=== PATIENT | male | born 1960 | race Caucasian/White ===

== ENCOUNTER 2016-09-23 16:07 | Observation (INO) | payer OTHER ==
[~2016-09-23] VITALS: Ht 175.3 cm; Wt 138.8 kg
[2016-09-23 16:09] VITALS: Ht 175.3 cm; Wt 138.8 kg
[2016-09-23] MEDS ORDERED: CEPHALEXIN MONOHYDRATE 250 MG CAP PO ONE (16:45)
[2016-09-23] MEDS ORDERED: XYLOCAINE 1%/SOD BICARB 20 ML VIAL INFIL ONE (16:45)
[2016-09-23] MEDS ORDERED: DIPHTHERIA/TETANUS/PERTUSSIS 0.5 ML SYR/VIAL IM. ONE (16:45)
--- NOTE | 2016-09-23 17:13 | DIAGNOSTIC IMAGING REPORT ---
RIGHT HAND MIN 3 VIEWS ROUTINE CLINICAL HISTORY: Right hand trauma. COMPARISON: None FINDINGS: There is a markedly comminuted, displaced fracture of the proximal phalanx of the right second finger. There is soft tissue irregularity with possible soft tissue gas. This may reflect an open fracture. Multiple bone fragments are noted. An 8 mm curvilinear radiodensity within the palmar soft tissues at the level the fracture suggests a foreign body. A 6 mm well-corticated ossicle along the lateral aspect of the wrist is chronic. No additional acute fractures are identified. IMPRESSION: 1. Markedly comminuted, displaced fracture of the proximal phalanx of the right second finger with suspected soft tissue gas. This may reflect an open fracture. 2. 8 mm curvilinear radiodensity within the palmar soft tissues at the level of the fracture which suggests a foreign body. Electronically signed by: Myles Amezquita M.D. 09/23/2016 5:12 PM Dictated Date/Time: 09/23/2016 5:09 PM
[2016-09-23] MEDS ORDERED: FENTANYL CITRATE INJ 50 MCG/1 ML 2 ML VIAL ONE ×2 (17:35→19:21)
[2016-09-23] MEDS ORDERED: MIDAZOLAM HCL 1 MG/ML 2ML VIAL ONE (17:35)
[2016-09-23] MEDS ORDERED: ATOR-24 PO (17:41)
[2016-09-23] MEDS ORDERED: ASPI81TA28 PO (17:41)
[2016-09-23] MEDS ORDERED: TPRSR/100 PO (17:41)
[2016-09-23] MEDS ORDERED: LEVO75TA5 PO (17:41)
[2016-09-23] MEDS ORDERED: LEVO50TA6 PO (17:41)
[2016-09-23] MEDS ORDERED: ERGO500037 PO (17:41)
[2016-09-23] MEDS ORDERED: LIDOCAINE HCL 2% 2 ML VIAL (20MG/ML) ONE (17:44)
[2016-09-23] MEDS ORDERED: PROPOFOL IV EMULSION 10 MG/ML 20 ML VIAL IV ONE (17:44)
[2016-09-23] MEDS ORDERED: ONDANSETRON INJ 2 MG/ML 2 ML VIAL ONE ×2 (17:44→18:11)
[2016-09-23 17:49] LABS: BASO % 0.4 %; BASO ABS # 0.05 K/uL (0-0.2); COMPLETE YES; EOS % 0.6 %; HEMATOCRIT 45.9 % (42-52); IG% 0.6 %; LYMPH % 16.4 %; LYMPH ABS # 2.16 K/uL (1.2-3.4); MEAN CELL VOLUME 85.6 fL (80-100); MEAN CORPUSCULAR HEMOGLOBIN 29.9 pg (25-34); MEAN CORPUSCULAR HGB CONC 34.9 g/dl (32-36); MEAN PLATELET VOLUME 9.1 fL (7.4-10.4); MONO % 7.4 %; NEUT % 74.6 %; PLATELET COUNT 261 K/uL (130-400); RED BLOOD COUNT 5.36 M/uL (4.7-6.1); WHITE BLOOD COUNT 13.18 K/uL (4.8-10.8)
[2016-09-23] MEDS ORDERED: BUPIVACAINE 0.5 % 5 MG/1 ML MPF 30ML VIAL ONE (17:58)
[2016-09-23] MEDS ORDERED: LIDOCAINE/EPINEPHRINE 1% 20 ML VIAL ONE (17:58)
[2016-09-23 18:06] LABS: BUN/CREATININE RATIO 16.3 (10-20); CREATININE 1.2 mg/dl (0.60-1.40); POTASSIUM 4.1 mmol/L (3.5-5.1)
[2016-09-23] MEDS ORDERED: SUCCINYLCHOLINE CHLORIDE 20 MG/ML 10 ML VIAL IV ONE (18:11)
[2016-09-23] MEDS ORDERED: ROCURONIUM BROMIDE 10 MG/ML 5 ML VIAL ONE (18:11)
[2016-09-23] MEDS ORDERED: PIPERACILLIN/TAZOBACTAM 4.5 GM/100ML D5W IV STA (18:13)
[2016-09-23] MEDS ORDERED: PIPERACILL/TAZOBAC CONSULT ACTIVE PRN (18:30)
--- NOTE | 2016-09-23 18:34 | HISTORY & PHYSICAL EXAMINATION ---
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 He was working at a place in [place] at around 2:00 p.m. when a forklift collapsed on his right hand crushing his index finger. He has no prior history of hand injuries. He denies any numbness or tingling. He had something to drink around 2:00 or 3:00 and has not eaten since noon. The injury occurred at work. ALLERGIES: HE HAS ALLERGIES TO BEES, ERYTHROMYCIN CAUSES GI UPSET. SOCIAL HISTORY: He smokes 1 pack of cigarettes per day, rarely drinks. He is with a daughter. MEDICATIONS: Metoprolol, levothyroxine, vitamin D, Lipitor and aspirin. REVIEW OF SYSTEMS: He does not have a history of bleeding or blood clots. He does have a history of skin cancer. He has no lung, liver or kidney disease. There is no history of infections. PAST SURGICAL HISTORY: Pacemaker, umbilical hernia, foreign body removed from left hand. PAST MEDICAL HISTORY: Includes skin cancer, hypothyroid. He is not diabetic. He has had a pacemaker inserted due to missed heartbeats. He has sleep apnea and uses a CPAP machine. He has high blood pressure.
--- NOTE | 2016-09-23 18:34 | EMERGENCY ROOM VISIT NOTE ---
History First contact with patient: 16:17 Chief Complaint: LACERATION/CUT (NON-SUTURE) Stated Complaint: SMASHED RT FINGER/HAND,WC History of Present Illness The patient is a 55 year old male who presents to the Emergency Room with complaints of an injury to his right hand when a forklift fell onto his hand at work. The patient was attempting to repair the hydraulic cylinder when this happened. He reports that several coworkers had to lift the forklift assembly off of his hand. The patient denies any significant bleeding, and currently denies any pain. The patient believes that his tetanus immunization is up-to- date within 10 years, but is not certain. The patient is [id number]. Review of Systems 10 system review was performed and was negative except for pertinent positives and negatives as indicated in history of present illness Past Medical/Surgical History Medical Problems: (1) Hypertension (2) Myocardial infarction Surgical Problems: (1) History of eye surgery Family History Unremarkable Social History Smoking Status: Current Every Day Smoker Alcohol Use: occasionally Marital Status: Occupation Status: employed Current/Historical Medications Scheduled Aspirin (Aspirin Ec), 81 MG PO DAILY Atorvastatin (Lipitor), 40 MG PO DAILY Ergocalciferol (Vitamin D 49754 Unit), 50,000 UNIT PO WK Levothyroxine Sodium (Levothyroxine Sodium), 75 MCG PO Q2D Levothyroxine Sodium (Levothyroxine Sodium), 50 MCG PO Q2D Metoprolol Succinate (Metoprolol Succinate ER), 100 MG PO HS Allergies Coded Allergies: Bee Venom (Verified Allergy, Intermediate, Swelling, 09/23/16) Erythromycin (Verified Adverse Reaction, Unknown, GI upset, 09/23/16) Physical Exam Vital Signs Date Time Temp Pulse Resp B/P Pulse Ox O2 Delivery O2 Flow Rate FiO2 09/23/16 21:10 67 13 90 09/23/16 21:10 67 13 09/23/16 18:15 60 18 156/99 93 Room Air 09/23/16 16:09 37.5 69 18 178/97 96 Room Air Physical Exam CONSTITUTIONAL: Healthy and well nourished. Alert and oriented X 3 with positive affect. Patient does not appear in any acute distress. HEENT: Normocephalic, atraumatic. Pupils equal, round and reactive. NECK: Full active range of motion without discomfort. RESPIRATORY: Clear to auscultation bilaterally with no wheezing, crackles, rhonchi or stridor. CARDIOVASCULAR: Regular rate and rhythm with no murmurs, rubs or gallops. MUSCULOSKELETAL: Examination of the right hand shows a 2 cm flap laceration/ avulsion over the dorsal base of the index finger. The extensor tendon is exposed. No active bleeding is noted. Capillary refill is less than 2 seconds. INTEGUMENTARY: No rash or other significant dermatologic conditions noted. NEUROLOGIC: Right hand and fingers are sensory intact. Medical Decision & Procedures ER Provider Diagnostic Interpretation: My interpretation of right hand x-ray shows a comminuted chevron-type fracture of the proximal phalanx. No intra-articular extension noted. A curvilinear radiopaque metallic foreign body is seen at the volar aspect of the proximal phalanx. Radiologist report is as follows: RIGHT HAND MIN 3 VIEWS ROUTINE CLINICAL HISTORY: Right hand trauma. COMPARISON: None FINDINGS: There is a markedly comminuted, displaced fracture of the proximal phalanx of the right second finger. There is soft tissue irregularity with possible soft tissue gas. This may reflect an open fracture. Multiple bone fragments are noted. An 8 mm curvilinear radiodensity within the palmar soft tissues at the level the fracture suggests a foreign body. A 6 mm well-corticated ossicle along the lateral aspect of the wrist is chronic. No additional acute fractures are identified. IMPRESSION: 1. Markedly comminuted, displaced fracture of the proximal phalanx of the right second finger with suspected soft tissue gas. This may reflect an open fracture. 2. 8 mm curvilinear radiodensity within the palmar soft tissues at the level of the fracture which suggests a foreign body. Laboratory Results Test 09/23/16 17:41 Immature Granulocyte % (Auto) 0.6 % White Blood Count 13.18 K/uL (4.8-10.8) Red Blood Count 5.36 M/uL (4.7-6.1) Hemoglobin 16.0 g/dL (14.0-18.0) Hematocrit 45.9 % (42-52) Mean Corpuscular Volume 85.6 fL (80-100) Mean Corpuscular Hemoglobin 29.9 pg (25-34) Mean Corpuscular Hemoglobin Concent 34.9 g/dl (32-36) Platelet Count 261 K/uL (130-400) Mean Platelet Volume 9.1 fL (7.4-10.4) Neutrophils (%) (Auto) 74.6 % Lymphocytes (%) (Auto) 16.4 % Monocytes (%) (Auto) 7.4 % Eosinophils (%) (Auto) 0.6 % Basophils (%) (Auto) 0.4 % Neutrophils # (Auto) 9.83 K/uL (1.4-6.5) Lymphocytes # (Auto) 2.16 K/uL (1.2-3.4) Monocytes # (Auto) 0.98 K/uL (0.11-0.59) Eosinophils # (Auto) 0.08 K/uL (0-0.5) Basophils # (Auto) 0.05 K/uL (0-0.2) Immature Granulocyte # (Auto) 0.08 K/uL (0.00-0.02) The above labs were reviewed. Medications Administered Medications (Trade) Dose Ordered Sig/Dalton Route Start Time Stop Time Status Last Admin Dose Admin Cephalexin Monohydrate (Keflex Cap) 500 mg NOW ONCE PO 09/23/16 16:45 09/23/16 16:46 DC 09/23/16 16:42 500 MG Diphtheria/ Pertussis/Tetanus Vacc (Adacel Inj) 0.5 ml ONCE ONCE IM. 09/23/16 16:45 09/23/16 16:46 DC 09/23/16 16:46 0.5 ML Lidocaine HCl (Buffered Lidocaine 1% Inj) 20 ml ONE ONCE INFIL 09/23/16 16:45 09/23/16 16:46 DC 09/23/16 16:42 20 ML Piperacillin Sod/ Tazobactam Sod (Zosyn Iv) 4.5 gm NOW STAT IV 09/23/16 18:13 09/23/16 18:14 DC 09/23/16 18:30 4.5 GM Povidone Iodine (Betadine Ophthalmic Prep Solution) 30 ml STK-MED ONCE .ROUTE 09/23/16 19:19 09/23/16 19:22 DC 09/23/16 19:19 30 ML Lidocaine HCl (Xylocaine 1% Inj (Local)) 20 ml STK-MED ONCE .ROUTE 09/23/16 19:34 09/23/16 19:36 DC 09/23/16 19:34 20 ML Bupivacaine HCl (Bupivacaine 0.5% - Pf) 9 ml ONE ONCE INJ 09/23/16 21:12 09/23/16 21:13 DC 09/23/16 21:12 9 ML ED Course Patient history and physical exam were performed. Nurse's notes were reviewed. The patient refused any analgesics on initial exam. The patient also refused any IV antibiotics at this point, and was therefore administered Keflex 500 mg orally. He was also administered Adacel IM. X-rays of the right hand shows a comminuted fracture of the proximal phalanx of the index finger, along with a curvilinear metallic foreign body in the palmar tissue at the same level as the fracture. At this point, x-rays were reviewed with Dr. De La Paz, orthopedic surgeon personal coach. He requested IV access for IV antibiotics. He will speak with the pharmacist regarding antibiotic choice. Labs were drawn and reviewed. Please see Dr. De La Paz's reports for further surgical management and disposition. Impression Primary Impression: Open displaced fracture of phalanx of right index finger Additional Impression: Work related injury Departure Information Referrals JOSÉ MANUEL VELAZQUEZ (PCP) Patient Instructions My [facility] Problem Qualifiers Primary Impression: Open displaced fracture of phalanx of right index finger Encounter type: initial encounter Phalanx: proximal Qualified Codes: S62.610B - Displaced fracture of proximal phalanx of right index finger, initial encounter for open fracture
--- NOTE | 2016-09-23 18:44 | HISTORY & PHYSICAL EXAMINATION ---
DATE OF ADMISSION: 09/23/2016 He has a history of sleep apnea and uses a CPAP machine, hypertension, DC 5 years ago with stents placed, pacemaker, no diabetes, hypothyroid and skin cancer. Examination of the right hand shows it is covered with blood and grease. He has no tenderness of the thumb, long, ring or little finger. The hand is not tender or swollen. There is an open wound beginning at the midline and proceeding circumferential in an ulnar direction volarly to near the midline. There is maceration of the wound. It is about a centimeter wide and may involve some soft tissue loss or significant damage. Capillary refill was less than 2 seconds. Radial pulses 2+. He can flex the DIP joint and hold the finger extended without a lag. He can flex the PIP joint and extend the PIP joint with good strength against resistance. On the volar and radial side of the distal portion of the finger there is decreased sensation. He has normal sensation dorsally and ulnarly. The wound is on the ulnar side of the digit. The finger does not appear to be notably deformed, shortened or crooked. The MP joint is not tender. IMPRESSION: 1. Grade 2 open fracture of the right index finger with numbness. 2. History of cardiac disease. Radiographs of the finger show a comminuted fracture of the proximal phalanx. There is a metallic foreign body located centrally and volarly perhaps with some other radiopaque material or bone. The fracture does not involve the joint, but there are at least 3 large fragments. PLAN: Findings are discussed with patient and family. I have recommended tetanus which is given, IV antibiotics. Ancef has been given and will follow that with Katerin after consultation with clinical pharmacist. A Betadine-soaked dressing is applied. He is to elevate and remain n.p.o. I have recommended operative intervention. He agrees to proceed. Plan will be for irrigation, debridement, and evaluation of the soft tissue, possible closure. He is aware that there is soft tissue damage which may leave an open wound and necessitate further treatment. I would remove the foreign body and also do an open reduction with percutaneous pinning if possible. There could be tendon damage. Looks like the tendons are intact. There is possibly some neurological injury. We discussed risks of infection, bleeding, pain, scarring, nerve and blood vessel damage, blood clots, embolism, heart attack, stroke, and , stiffness, pin failure, the need for further surgery, wound problems. He has no issues with bleeding, blood clots or infections. Will plan on hopefully a regional anesthetic with sedation. His white count is 13, hemoglobin is 16, hematocrit 46, platelet count is 261. His PRP is noted. BUN is slightly high at 20.
[2016-09-23] MEDS ORDERED: POVIDONE-IODINE OP SOLN 30 ML BTL ONE (19:19)
[2016-09-23] MEDS ORDERED: LIDOCAINE HCL 1% 20 ML VIAL ONE (19:34)
[2016-09-23] MEDS ORDERED: NEOSTIGMINE METHYLSULFATE 5 MG/5 ML SYR ONE (19:35)
[2016-09-23] MEDS ORDERED: GLYCOPYRROLATE INJ 0.2 MG/ML VIAL ONE (19:35)
--- NOTE | 2016-09-23 20:58 | DIAGNOSTIC IMAGING REPORT ---
INTRAOPERATIVE FLUOROSCOPIC IMAGES OF THE RIGHT SECOND FINGER CLINICAL HISTORY: Incision and drainage. K wire fixation. COMPARISON STUDY: Right hand radiographs performed September 23, 2016. FLUOROSCOPY TIME: 1 minute and 47 seconds. FINDINGS: 2 intraoperative fluoroscopic images from K wire fixation of the fracture of the proximal phalanx of the right second finger were obtained. Fracture alignment is markedly improved and now near anatomic. No unexpected radiopaque foreign bodies are identified. IMPRESSION: Expected findings following K wire fixation of the fracture of the proximal phalanx of the right second finger. Electronically signed by: Myles Amezquita M.D. 09/23/2016 8:57 PM Dictated Date/Time: 09/23/2016 8:55 PM
[2016-09-23] MEDS ORDERED: BUPIVACAINE 0.5% - PF INJ ONE (21:12)
[2016-09-23] MEDS ORDERED: MoRPHine SULFATE 2 MG/ML CARP IV PRN (21:15)
[2016-09-23] MEDS ORDERED: METOCLOPRAMIDE HCL INJ 5 MG/ML 2 ML VIAL IV PRN (21:15)
[2016-09-23] MEDS ORDERED: ALUMINUM/MAGNESIUM/SIMETH (MAALOX MAX) 30 ML UDC PO PRN (21:15)
[2016-09-23] MEDS ORDERED: ONDANSETRON INJ 2 MG/ML 2 ML VIAL IV PRN ×2 (21:15→21:30)
--- NOTE | 2016-09-23 21:20 | [facility] Operative Report ---
Operative Report Operative Date Sep 23, 2016. Pre-Operative Diagnosis Grade 2 open fracture of the right index finger with numbness Post-Operative Diagnosis same Procedure(s) Performed Right index finger, irrigation and debridement, percutaneous pinning, soft tissue closure Surgeon Dr. De La Paz Academic Affairs Coordinator Surgeon(s) Shun Camarena PA-C Estimated Blood Loss Minimal - per Dr. De La Paz Findings same Specimens None Drains none Anesthesia general Disposition Recovery Room / PACU Indications sustained injury to right index finger, xrays and exam obtained, surgery recommended, consents signed Description of Procedure taken to the OR, prepped and draped, I was present the entire case, please see Dr. De La Paz's op note for further detail. I attest to the content of the Intraoperative Record and any orders documented therein. Any exceptions are noted below.
[2016-09-23] MEDS ORDERED: EpHEDrine SULFATE INJ 50 MG/ML AMP IV PRN (21:30)
[2016-09-23] MEDS ORDERED: IV FLUIDS COMPLETED PRN (21:30)
[2016-09-23] MEDS ORDERED: ATROPINE SULFATE 0.1 MG/ML 5ML SYR IV PRN (21:30)
[2016-09-23] MEDS ORDERED: HYDROmorphone INJ 1 MG/ML SYR IV PRN (21:30)
[2016-09-23] MEDS ORDERED: FENTANYL CITRATE INJ 50 MCG/1 ML 2 ML VIAL IV PRN (21:30)
[2016-09-23] MEDS ORDERED: PIPERACILL/TAZOBAC IV 4.5 GM in DEXTROSE 5% 100ML 100 ML IV SCH (21:30)
--- NOTE | 2016-09-23 21:33 | [facility] Post Operative Brief Note ---
Immediate Operative Summary Operative Date Sep 23, 2016. Pre-Operative Diagnosis Grade 2 open fracture of the right index finger with numbness Post-Operative Diagnosis Grade 2 open fracture of the right index finger with numbness Procedure(s) Performed Exploration and Percutaneous Pinning Proximal Right index finger, I & D right index finger Surgeon Dr. De La Paz Tafe Lecturer Surgeon(s) Shun Camarena PA-C Estimated Blood Loss Minimal - per Dr. De La Paz Findings soft tissue defect, grade 2 open prox phalanx fracture Specimens None Drains 0 Anesthesia general Complication(s) None Disposition Recovery Room / PACU
--- NOTE | 2016-09-23 21:52 | Anesthesiology Progress Note ---
Anesthesia Post Op Note Date & Time Sep 23, 2016 at 21:52 Vital Signs Pain Intensity: 0 Vital Signs Past 12 Hours Date Time Temp Pulse Resp B/P Pulse Ox O2 Delivery O2 Flow Rate FiO2 09/23/16 18:15 60 18 156/99 93 Room Air 09/23/16 16:09 37.5 69 18 178/97 96 Room Air Notes Mental Status: alert / awake / arousable, participated in evaluation Pt Amnestic to Procedure: Yes Nausea / Vomiting: adequately controlled Pain: adequately controlled Airway Patency, RR, SpO2: stable & adequate BP & HR: stable & adequate Hydration State: stable & adequate Anesthetic Complications: no major complications apparent
[2016-09-23 22:50] VITALS: BP 164/97; PULSE 61; TEMP 36.4; O2SAT 93; O2SAT 94
[2016-09-23 22:52] VITALS: BP 143/84; PULSE 60; TEMP 37; O2SAT 93
[2016-09-23 23:20] VITALS: BP 165/102; PULSE 71; TEMP 36.8; O2SAT 94
[2016-09-23] MEDS: D5W AND 1/2NSS + 20MEQ KCL 1,000 ML IV SCH (23:51)
[2016-09-23] MEDS: PIPERACILL/TAZOBAC IV 3.375 GM in DEXTROSE 5% 100ML 100 ML IV SCH (23:55)
[2016-09-24 00:20] VITALS: BP 145/82; PULSE 60; TEMP 36.3; O2SAT 95
[2016-09-24] MEDS ORDERED: IV FLUIDS COMPLETED PRN (01:00)
[2016-09-24] MEDS: OXYCODONE/ACETAMINOPHEN 5-325 TAB PO PRN ×2 (01:50→09:16)
[2016-09-24 03:40] VITALS: BP 146/87; PULSE 59; TEMP 36.4; O2SAT 95
[2016-09-24] MEDS ORDERED: LEVOTHYROXINE 50 MCG TAB PO SCH (06:00)
[2016-09-24 06:57] LABS: MEAN CELL VOLUME 85.5 fL (80-100); MEAN CORPUSCULAR HEMOGLOBIN 29.2 pg (25-34); MEAN CORPUSCULAR HGB CONC 34.2 g/dl (32-36); MEAN PLATELET VOLUME 9.1 fL (7.4-10.4); PLATELET COUNT 229 K/uL (130-400); RED BLOOD COUNT 5.03 M/uL (4.7-6.1); WHITE BLOOD COUNT 12.14 K/uL (4.8-10.8)
[2016-09-24] MEDS: PIPERACILL/TAZOBAC IV 3.375 GM in DEXTROSE 5% 100ML 100 ML IV SCH ×3 (07:22→23:44)
[2016-09-24 07:27] LABS: BUN/CREATININE RATIO 17.1 (10-20); CALCIUM 8.6 mg/dl (8.5-10.1); CREATININE 1.1 mg/dl (0.60-1.40); POTASSIUM 4.3 mmol/L (3.5-5.1)
[2016-09-24 07:30] VITALS: BP 134/80; PULSE 60; TEMP 36.8; O2SAT 93
--- NOTE | 2016-09-24 07:42 | OPERATIVE REPORT ---
DATE OF OPERATION: 09/23/2016 PREOPERATIVE DIAGNOSIS: Grade 2 open fracture of the right index finger. POSTOPERATIVE DIAGNOSIS: Same. PROCEDURE: Irrigation, debridement, closed reduction, percutaneous pinning, wound exploration and closure. SURGEON: Tawanda De La Paz MD CORE BLOWER OPERATOR: Shun Camarena PA-C. No resident or fellow available. ANESTHESIA: General. 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 Earlier today, he was seen in the emergency room and diagnosed with an open fracture. He was given antibiotics and tetanus. He was taken urgently to the operating room for irrigation, debridement and other treatments as indicated. PROCEDURE IN DETAIL: Informed consent was obtained. The patient was identified as Jose Atkinson. He identified the operative site as the right hand index finger. I marked with my initials. A preop surgical time out was performed. A preop dose of IV antibiotics was given. He was taken to the operating room, positioned supine on the operating room table with the right arm on a hand table. A tourniquet was applied to the right upper arm. A preop dose of Zosyn was given based upon consultation with clinical pharmacist. The right hand was double scrubbed with a Betadine scrub brush in order to remove caked on blood, grease and hydraulic fluid. The right arm was then prepped with Betadine in usual sterile fashion. The limb was exsanguinated with the Esmarch from the hand up leaving the fingers free and tourniquet inflated to 250 mmHg. A preop surgical time out was performed. A preop dose of IV antibiotics was given. Fluoroscopic guidance was utilized throughout the procedure. DVT prophylaxis was not indicated. At the conclusion of the operation, a digital block with 1% lidocaine and 0.5% Marcaine both without epinephrine was given. The wound was irrigated with a liter of saline bulb syringe and a liter of Betadine lavage. The hematoma was evacuated. The skin and fracture site were thoroughly irrigated. There was an avulsion laceration with a 5 mm pedicle flap distally. The skin was moderately damaged. This was full thickness loss down to the bone. The extensor tendon was intact. The flexor tendons were intact. The flap of skin was pedicled distally. A closed reduction was performed with a little bit of gentle longitudinal traction and adjustment of flexion and extension and percutaneous pin was inserted from the radial base distally, obliquely across the fracture. This was adjusted x2. Another pin was then applied from the distal portion, radial side of the proximal phalanx proximally. These were bicortical pins and provided excellent stability and anatomic alignment in both the AP and lateral planes. The fracture was highly comminuted in its mid portion. The wound itself was 2 cm long, 3 cm deep and basically went from the dorsal midline to the volar midline at the level of the webspace and just distally on the ulnar side. Irrigation again was performed. I oriented the flap. I had to essentially amputate the small remaining pedicle. The skin was 90-95% free anyhow. I then oriented it, reapproximated it and sutured into place with good coverage everywhere except at the webspace where there was some soft tissue loss. Without this, the wound is open to the extensor tendon directly to the fracture which would be visible and to the flexor tendon. The tourniquet was let down after the irrigation, debridement was performed and meticulous hemostasis was obtained. There was good capillary refill in the finger. There was good rotation with passive digital flexion. The nail beds were parallel in extension and in mid flexion. The pins were cut outside the skin. Jurgan balls were applied. Xeroform fluffs between the fingers, a bulky soft sterile dressing followed by a volar splint. The patient was then awakened from anesthesia without difficulty and taken to recovery room in stable condition. There were no specimens or complications. Counts were correct at the end of the case. Blood loss was minimal. At the conclusion of the operation, I spoke to patient's family and informed them of my findings. K-wires inserted were 0.035 inches in diameter and provided good secure fixation. Dog Behaviorist images were obtained. I discussed with the family the issues with soft tissue coverage. There is a significant likelihood that this free soft tissue flap will not be viable and advanced soft tissue coverage may be necessary, which might involve the other specialties such as hand surgery or plastic surgery. He will be admitted to the hospital, the hand will be elevated and he will be placed on intravenous antibiotics. while prepping the metal fragment seen on the preop xray fell out of the wound. I attest to the content of the Intraoperative Record and any orders documented therein. Any exceptions are noted below. DAVIAND
[2016-09-24] MEDS: D5W AND 1/2NSS + 20MEQ KCL 1,000 ML IV SCH ×2 (09:17→18:31)
[2016-09-24] MEDS: ASPIRIN 81 MG ECTAB PO SCH (09:17)
[2016-09-24] MEDS: ATORVASTATIN 40 MG TAB PO SCH (09:17)
[2016-09-24] MEDS: MULTIVITAMIN TAB PO SCH (09:17)
[2016-09-24] MEDS: DOCUSATE SODIUM 100 MG CAP PO SCH ×2 (09:17→21:09)
[2016-09-24] MEDS: PANTOprazole SOD 40 MG TAB PO SCH (09:17)
--- NOTE | 2016-09-24 13:20 | Progress Note ---
Orthopedic SOAP Note Subjective Date of Service: Sep 24, 2016. Post OP Day: 1 Reports: feeling well, pain controlled w PO medications, Denies: SOB, calf pain , chest pain, complaints, light headedness, nausea / vomiting, using CUTTING DEPARTMENT SUPERVISOR Additional Notes: reports some numbness in the right index finger Problem List Medical Problems: (1) Open displaced fracture of phalanx of right index finger Status: Acute (2) Work related injury Status: Acute Objective splint C/D/I, capillary refill less than 2 sec., dressing C/D/I, A&O x3 patient has sensation with light touch but does report decreased feeling overall Date Time Temp Pulse Resp B/P Pulse Ox O2 Delivery O2 Flow Rate FiO2 09/24/16 08:01 Room Air 09/24/16 07:30 36.8 60 18 134/80 93 Room Air 09/24/16 03:40 36.4 59 20 146/87 95 Nasal Cannula 2.0 09/24/16 00:20 36.3 60 20 145/82 95 Nasal Cannula 3.0 09/23/16 23:45 Nasal Cannula 3.0 09/23/16 23:20 36.8 71 18 165/102 94 Nasal Cannula 3.0 09/23/16 22:52 37.0 60 17 143/84 93 Room Air 2.0 CPAP 09/23/16 22:50 93 Nasal Cannula 2.0 CPAP 09/23/16 22:50 36.4 61 20 164/97 94 Nasal Cannula 4.0 09/23/16 22:44 93 Nasal Cannula 3.0 09/23/16 22:01 65 22 94 09/23/16 22:01 65 22 09/23/16 21:59 141/76 09/23/16 21:56 65 18 90 09/23/16 21:56 66 18 09/23/16 21:54 145/76 09/23/16 21:51 36.4 62 19 145/76 92 Nasal Cannula 3 09/23/16 21:51 67 13 09/23/16 21:51 66 13 91 09/23/16 21:49 138/75 09/23/16 21:46 62 9 09/23/16 21:46 62 9 89 09/23/16 21:44 154/84 09/23/16 21:41 61 13 92 09/23/16 21:41 61 13 09/23/16 21:39 143/91 09/23/16 21:36 66 19 09/23/16 21:36 66 19 87 09/23/16 21:35 71 16 09/23/16 21:35 70 16 88 09/23/16 21:34 139/79 09/23/16 21:30 67 24 94 09/23/16 21:30 67 24 09/23/16 21:29 141/82 09/23/16 21:26 132/79 09/23/16 21:26 36.2 64 12 131/91 91 Mask 10 09/23/16 21:25 64 7 95 09/23/16 21:25 64 7 09/23/16 21:20 65 13 09/23/16 21:20 66 13 94 09/23/16 21:15 67 13 92 09/23/16 21:15 67 13 09/23/16 21:14 128/72 09/23/16 21:10 67 13 90 09/23/16 21:10 67 13 09/23/16 18:15 60 18 156/99 93 Room Air 09/23/16 16:09 37.5 69 18 178/97 96 Room Air Laboratory Results 24 Hours: Test 09/23/16 17:41 09/24/16 06:35 White Blood Count 13.18 K/uL Red Blood Count 5.36 M/uL Hemoglobin 16.0 g/dL 14.7 g/dL Hematocrit 45.9 % 43.0 % Mean Corpuscular Volume 85.6 fL Mean Corpuscular Hemoglobin 29.9 pg Mean Corpuscular Hemoglobin Concent 34.9 g/dl Platelet Count 261 K/uL Mean Platelet Volume 9.1 fL Neutrophils (%) (Auto) 74.6 % Lymphocytes (%) (Auto) 16.4 % Monocytes (%) (Auto) 7.4 % Eosinophils (%) (Auto) 0.6 % Basophils (%) (Auto) 0.4 % Neutrophils # (Auto) 9.83 K/uL Lymphocytes # (Auto) 2.16 K/uL Monocytes # (Auto) 0.98 K/uL Eosinophils # (Auto) 0.08 K/uL Basophils # (Auto) 0.05 K/uL Assessment post op day 1 s/p right index finger I&D, percutaneous pinning, wound closure Plan continue post op care sling for comfort ice/elevation pain control with prescribed medications CPAP activity as tolerated, no using right hand resume diet continue ABX will discuss findings further with Dr. De La Paz
[2016-09-24 15:46] VITALS: BP 157/95; PULSE 60; TEMP 36.6; O2SAT 98
[2016-09-24] MEDS ORDERED: PANTOprazole SOD 40 MG TAB PO STA (18:38)
--- NOTE | 2016-09-24 19:22 | PROGRESS NOTE ---
DATE: 09/24/2016 SUBJECTIVE: Pain is reasonably well controlled and reviewed pain medication with him. He has indigestion, I will order Protonix. Labs noted. White count is down to 12. He is on Unasyn. He can wiggle the tip of his fingers, the nail plates look parallel, capillary refill is less than 2 seconds. Fingers are warm. He has some decreased sensation on the palmar side, radial side is okay, ulnar side has decreased sensation, a little bit same on the dorsal. Dressing is clean and dry. He is elevating. He has a grade 2 open fracture proximal phalanx, right index finger status post percutaneous pinning. There is a 2 x 3 cm soft tissue defect, ulnarly covered with an avulsed piece of soft tissue. PLAN: Continue to elevate, ice, pain medication and antibiotics. I have made contact with hand surgery/plastics at [place] to discuss further plans for treatment and possible soft tissue coverage. Will discuss with the patient when plan is become available. ALEJANDRO
[2016-09-24] MEDS ORDERED: METOPROLOL SUCC 50MG EXT REL TAB PO SCH (21:00)
[2016-09-24 21:09] VITALS: BP 144/86; PULSE 88
[2016-09-24 23:21] VITALS: BP 143/89; PULSE 60; TEMP 36.4; O2SAT 97
[2016-09-25 03:25] VITALS: BP 127/89; PULSE 60; TEMP 36.8; O2SAT 97
[2016-09-25] MEDS: D5W AND 1/2NSS + 20MEQ KCL 1,000 ML IV SCH (05:26)
[2016-09-25] MEDS: OXYCODONE/ACETAMINOPHEN 5-325 TAB PO PRN (05:29)
[2016-09-25] MEDS ORDERED: LEVOTHYROXINE 75 MCG TAB PO SCH (06:00)
[2016-09-25 07:09] VITALS: BP 141/89; PULSE 87; TEMP 36.4; O2SAT 92
[2016-09-25] MEDS: PIPERACILL/TAZOBAC IV 3.375 GM in DEXTROSE 5% 100ML 100 ML IV SCH (07:44)
[2016-09-25 08:39] LABS: HEMATOCRIT 41.5 % (42-52); MEAN CELL VOLUME 86.5 fL (80-100); MEAN CORPUSCULAR HEMOGLOBIN 29.2 pg (25-34); MEAN CORPUSCULAR HGB CONC 33.7 g/dl (32-36); MEAN PLATELET VOLUME 9.2 fL (7.4-10.4); PLATELET COUNT 225 K/uL (130-400); WHITE BLOOD COUNT 9.44 K/uL (4.8-10.8)
[2016-09-25] MEDS: PANTOprazole SOD 40 MG TAB PO SCH (08:51)
[2016-09-25] MEDS: ASPIRIN 81 MG ECTAB PO SCH (08:51)
[2016-09-25] MEDS: DOCUSATE SODIUM 100 MG CAP PO SCH (08:51)
[2016-09-25] MEDS: ATORVASTATIN 40 MG TAB PO SCH (08:51)
[2016-09-25] MEDS: MULTIVITAMIN TAB PO SCH (08:51)
[2016-09-25 09:13] LABS: BUN/CREATININE RATIO 17.5 (10-20); CALCIUM 8.6 mg/dl (8.5-10.1); CREATININE 1.1 mg/dl (0.60-1.40); POTASSIUM 4.2 mmol/L (3.5-5.1)
[2016-09-25 11:38] VITALS: BP 142/84; PULSE 87; TEMP 36.9; O2SAT 92
--- NOTE | 2016-09-25 11:46 | PROGRESS NOTE ---
DATE: 09/25/2016 No problems reported. He is afebrile. Vital signs are stable. Labs are noted. Hematocrit is 41. PRP noted. Dressing is changed. He has decreased sensation on the ulnar palmar aspect of the finger, otherwise normal capillary refill less than 2 seconds finger attitude/position looks appropriate to other fingers. Nailbeds are parallel. Looks equal to the opposite side. Pins are in place. Pin care cleaned with sterile saline. Blood cleaned from hand with sterile saline. The skin at the ulnar base of the digit is intact, but macerated. There is mild swelling, no erythema. Minimal to no drainage. A new dressing is applied. Bulky soft sterile hand dressing, fluffed between the fingers. Nonadherent dressing. Pads around the pins. A volar forearm splint. IMPRESSION: Grade 2 open fracture of the right hand, proximal phalanx, status post incision and drainage, percutaneous pinning, soft tissue compromise. PLAN: Findings discussed with patient. Recommend that he continue to elevated and ice. He can be discharged home. He has received a postop course of IV antibiotics. He does not require any DVT prophylaxis. Pain medication, icing, anti-inflammatory, if able. He will follow up with me next week, Friday or Friday in my office. He will continue the splint. I spoke with Dr. Edwardo Chao at [facility], who has agreed to see the patient this Friday in consultation regarding the soft tissue compromise and the need for a graft or a flap to provide coverage. I have given Dr. Chao the patient's contact information and they will arrange an appointment. If there are any problems with pain, fever, swelling, numbness, tingling or other problems or questions, please return to the ER or call my office.
[2016-09-25] MEDS ORDERED: OXYC-57 PO (11:56)
--- NOTE | 2016-09-25 11:59 | Discharge Instructions ---
Discharge Instructions Admission Reason for Admission: Open Displaced Fracture Of Phalanx R Index Finger Discharge Discharge Diagnosis / Problem: same as above Discharge Goals Goal(s): Decrease discomfort, Improve function, Increase independence Activity Recommendations Activity Limitations: as noted below Lifting Limitations: until after follow-up appointment Exercise/Sports Limitations: until after follow-up appointment May Resume Sexual Activity: when tolerated Shower/Bathe: tomorrow, keep incision dry Driving or Machine Use: resume 1 day after discharge Weightbearing Status: Right non-weightbearing (No lifting with Right hand) . Instructions / Follow-Up Instructions / Follow-Up DIET: * Resume previous diet. MEDICATIONS: * Please take your prescriptions as instructed at your pre-op appointment and/ or see medication discharge instructions listed above. * If concerns develop, call your physician's office at . SPECIAL CARE INSTRUCTIONS: * Ice/Elevate as instructed. * Keep dressing clean, dry, intact. * Your surgical extremity may be discolored due to prepping agents used on the skin. A bluish-green tint is a normal variant and should not cause alarm. Call your doctor at [phone] if: * Temperature above 101 degrees * Pain not relieved by pain medicine ordered * There is increased drainage or redness from any incision * You have any unanswered questions, problems or concerns. FOLLOW UP VISIT: * If not already scheduled, please call the office at to schedule a follow-up appointment. Dr. De La Paz wants to see you in the clinic either Next Friday or Friday. Call office today to set up the appointment. Current Hospital Diet Patient's current hospital diet: Regular Diet Discharge Diet Recommended Diet: Regular Diet Procedures Procedures Performed: Exploration and Percutaneous Pinning Proximal Right index finger, I & D right index finger Pending Studies Studies pending at discharge: no Medical Emergencies . Who to Call and When: Medical Emergencies: If at any time you feel your situation is an emergency, please call 911 immediately. . Non-Emergent Contact Non-Emergency issues call your: Primary Care Provider Call Non-Emergent contact if: temperature is above 101.5, your pain is not controlled, wound has increased drainage, you have any medication questions . "Provider Documentation" section prepared by Vinnie Wang. VTE Core Measure Inpt VTE Proph given/why not?: Treatment not indicated [place] Drug Monitoring Program Search Results: no issues identified
[2016-09-25 12:02] VITALS: BP 142/84; PULSE 87; TEMP 36.9; O2SAT 92
--- NOTE | 2016-09-27 10:17 | DISCHARGE SUMMARY ---
ADMISSION DIAGNOSIS: Grade 2 open fracture right index finger with numbness. POSTOPERATIVE DIAGNOSES: Status post exploration and percutaneous pinning proximal right index finger and I\T\D right index finger. PERTINENT DISCHARGE MEDICATIONS: Include Percocet 5/325 mg as needed for pain. All other medications to be resumed. HOSPITAL COURSE: Jose is a 55-year-old male that injured his right index finger on 09/23/2016 while at work. He required surgical intervention that he tolerated very well. He was monitored over the next several days and his progression continued accordingly. He was able to be discharged by Dr. De La Paz on 09/25/2016 with specific instructions. VITAL SIGNS: Upon discharge reveal a temperature of 36.9, pulse of 87, respiratory rate 20, pulse ox is 92% on room air. LABORATORY VALUES: On 09/25/2016 reveal white count of 9, hemoglobin of 14, hematocrit of 42, platelet count of 225. Chemistry shows sodium of 140, potassium 4.2, chloride 108, carbon dioxide 25, BUN 19, creatinine of 1.1. Random glucose is 107. DISCHARGE INSTRUCTIONS: 1. Discharge home on 09/25/2016. 2. Continue pain control with prescribed medications. 3. Keep the right hand wound dressing clean, dry and intact. 4. The patient will follow up with Dr. De La Paz on the week of 09/30/2016 for postoperative check. 5. Resume previous diet. 6. No lifting or excessive use with the right upper extremity. 7. Ice and elevation accordingly. 8. Call [facility] at [phone] with any other questions or concerns.
== END 2016-09-25 16:00 | disposition home or self-care (01) ==
LOC: ENRESERVTM → ENRESERVDT → C.EDB 16:09 → C.MSW 21:13
PROVIDERS: ADMIT Physical Medicine & Rehabilitation Sports Medicine; ATTEND Physical Medicine & Rehabilitation Sports Medicine
DX: S62.610B Displaced fracture of proximal phalanx of right index finger, initial encounter for open fracture (principal); Z23 Encounter for immunization; I25.2 Old myocardial infarction; I11.9 Hypertensive heart disease without heart failure; G47.30 Sleep apnea, unspecified; E03.9 Hypothyroidism, unspecified; F17.210 Nicotine dependence, cigarettes, uncomplicated; Z79.899 Other long term (current) drug therapy; Z79.82 Long term (current) use of aspirin; Z85.828 Personal history of other malignant neoplasm of skin; Z95.0 Presence of cardiac pacemaker; W24.0XXA Contact with lifting devices, not elsewhere classified, initial encounter; Y99.0 Civilian activity done for income or pay

== ENCOUNTER → 2016-10-02 | Outpatient (CLI) | payer OTHER ==
[~2016-10-02] MED LIST: ASPI81TA28 PO; ATOR-24 PO; ERGO500037 PO; LEVO50TA6 PO; LEVO75TA5 PO; OXYC-57 PO; TPRSR/100 PO
== END | disposition home or self-care (01) ==
LOC: C.RDSM 09:58
PROVIDERS: ATTEND Physical Medicine & Rehabilitation Sports Medicine
DX: S62.604B Fracture of unspecified phalanx of right ring finger, initial encounter for open fracture (principal); X58.XXXA Exposure to other specified factors, initial encounter

== ENCOUNTER → 2016-10-07 | Outpatient (CLI) | payer OTHER | END | disposition home or self-care (01) | LOC: C.RDSM 12:07 | PROVIDERS: ATTEND Physical Medicine & Rehabilitation Sports Medicine | DX: S62.609B Fracture of unspecified phalanx of unspecified finger, initial encounter for open fracture (principal); X58.XXXA Exposure to other specified factors, initial encounter ==

== ENCOUNTER → 2016-10-15 | Outpatient (CLI) | payer OTHER | END | disposition home or self-care (01) | LOC: C.RDSM 16:02 | PROVIDERS: ATTEND Physical Medicine & Rehabilitation Sports Medicine | DX: S62.609B Fracture of unspecified phalanx of unspecified finger, initial encounter for open fracture (principal); X58.XXXA Exposure to other specified factors, initial encounter ==

== ENCOUNTER → 2016-11-08 | Outpatient (CLI) | payer OTHER | END | disposition home or self-care (01) | LOC: C.RDSM 10:15 | PROVIDERS: ATTEND Physical Medicine & Rehabilitation Sports Medicine | DX: S62.609B Fracture of unspecified phalanx of unspecified finger, initial encounter for open fracture (principal); X58.XXXA Exposure to other specified factors, initial encounter ==

== ENCOUNTER → 2016-12-10 | Outpatient (CLI) | payer OTHER | END | disposition home or self-care (01) | LOC: C.RDSM 09:10 | PROVIDERS: ATTEND Physical Medicine & Rehabilitation Sports Medicine | DX: S62.609B Fracture of unspecified phalanx of unspecified finger, initial encounter for open fracture (principal); X58.XXXA Exposure to other specified factors, initial encounter ==

== ENCOUNTER → 2017-01-17 | Outpatient (CLI) | payer OTHER | END | disposition home or self-care (01) | LOC: C.RDSM 13:41 | PROVIDERS: ATTEND Physical Medicine & Rehabilitation Sports Medicine | DX: S62.609B Fracture of unspecified phalanx of unspecified finger, initial encounter for open fracture (principal); X58.XXXA Exposure to other specified factors, initial encounter ==

== ENCOUNTER → 2017-03-28 | Outpatient (CLI) | payer OTHER, BC | END | disposition home or self-care (01) | LOC: C.RDSM 09:23 | PROVIDERS: ATTEND Physical Medicine & Rehabilitation Sports Medicine | DX: S62.609B Fracture of unspecified phalanx of unspecified finger, initial encounter for open fracture (principal); X58.XXXA Exposure to other specified factors, initial encounter ==